=== PATIENT | male | born 1955 | race Caucasian/White ===

== ENCOUNTER 2020-09-26 14:40 | Inpatient (IN) | payer OTHER, MEDICAID ==
[~2020-09-26] VITALS: Ht 167.6 cm; Wt 72.6 kg
[2020-09-26] MEDS ORDERED: SODIUM CHLORIDE 0.9% 1000ML BAG (SEPSIS BOLUS) IV ONE (16:30)
[2020-09-26] MEDS ORDERED: VANCOMYCIN 1 G PREMIX 200 ML IV ONE (16:30)
[2020-09-26] MEDS ORDERED: PIPERACILLIN/TAZ 3.375G PREMIX 50 ML IV ONE (16:30)
[2020-09-26 16:38] LABS: HEMOGLOBIN. 12.9 g/dL (14.0-18.0); MEAN CORPUSCULAR VOLUME 88.5 fL (80.0-94.0); MEAN PLATELET VOLUME 7.8 fl (7.4-10.4); PLATELET 285 x1000/uL (130-400); RED BLOOD CELL COUNT 4.18 mill/uL (4.7-6.1); RED CELL DISTRIBUTION WIDTH 12.2 % (11.6-14.6)
[2020-09-26 16:40] LABS: CHLORIDE 95 mEq/L (98-107)
[2020-09-26 16:43] LABS: INR 1.1; PROTHROMBIN TIME 11.8 sec (9.6-11.0)
[2020-09-26 17:05] LABS: PLATELET ESTIMATE NORMAL
[2020-09-26 17:06] LABS: CLARITY URINE CLEAR (CLEAR); COLOR URINE DARK YELLOW (YELLOW); KETONES URINE TRACE (NEGATIVE); LEUKOCYTE ESTERASE URINE NEGATIVE (NEGATIVE); NITRITE URINE NEGATIVE (NEGATIVE); OCCULT BLOOD URINE NEGATIVE (NEGATIVE); PROTEIN URINE TRACE (NEGATIVE); SPECIFIC GRAVITY URINE 1.026 (1.005-1.030)
[2020-09-26] MEDS ORDERED: INSULIN REGULAR (HUMULIN R) 300UNITS/3ML VIAL SUBCUT ONE (21:30)
[2020-09-26 22:00] VITALS: BP 101/60
[2020-09-27] VITALS: BP 101/60
[2020-09-27] MEDS ORDERED: DEXTROSE 50% WATER 50ML SYRINGE IV PRN (00:15)
[2020-09-27] MEDS ORDERED: NALOXONE HCL 0.4MG/ML VIAL IV PRN (00:45)
[2020-09-27] MEDS ORDERED: *PATIENT'S OWN MEDICATION STORAGE XX SCH (02:15)
[2020-09-27] MEDS: PIPERACILLIN/TAZOBACTAM 3.375G in DEXT 5% WATER 50ML IV SCH ×3 (03:08→18:29)
[2020-09-27] MEDS ORDERED: METF-414 MT (03:39)
[2020-09-27 04:00] VITALS: BP 103/60
[2020-09-27] MEDS ORDERED: PIPERACILLIN/TAZOBACTAM 3.375 G/VIAL IV SCH (06:00)
[2020-09-27] MEDS: VANCOMYCIN 750 MG PREMIX 150 ML IV SCH ×2 (06:27→21:09)
[2020-09-27] MEDS: BLOOD SUGAR DIAGNOSTIC STRIP TEST SCH ×4 (06:28→21:00)
[2020-09-27] MEDS: HYDROCODONE/ACETAMINOPHEN 5/325MG TABLET PO PRN (06:29)
[2020-09-27 08:00] VITALS: BP 99/64
[2020-09-27] MEDS: ASPIRIN 81MG TABLET PO SCH (08:51)
[2020-09-27] MEDS: INSULIN LISPRO 100 UNITS/ML SUBCUT SCH ×4 (08:56→21:21)
[2020-09-27 10:50] LABS: HEMATOCRIT. 34.1 % (42.0-52.0); HEMOGLOBIN. 11.7 g/dL (14.0-18.0); MEAN CORPUSCULAR HEMOGLOBIN 30.6 pg (28.0-32.0); MEAN CORPUSCULAR VOLUME 89.1 fL (80.0-94.0); MEAN PLATELET VOLUME 8.2 fl (7.4-10.4); PLATELET 279 x1000/uL (130-400); RED BLOOD CELL COUNT 3.82 mill/uL (4.7-6.1); RED CELL DISTRIBUTION WIDTH 12.5 % (11.6-14.6)
[2020-09-27 11:31] LABS: CHLORIDE 102 mEq/L (98-107)
[2020-09-27 11:47] LABS: PLATELET ESTIMATE NORMAL
[2020-09-27 12:00] VITALS: BP 108/66
[2020-09-27] MEDS ORDERED: LIDOCAINE HCL 1% 20ML VIAL (Pyxis) INJ INFIL NR (12:17)
[2020-09-27] MEDS ORDERED: LIDOCAINE HCL 2% JELLY 5ML TOP NR (12:17)
[2020-09-27] MEDS: SILVER SULFADIAZINE 1% CREAM 50GM TOP SCH (15:00)
[2020-09-27] MEDS: SODIUM HYPOCHLORITE 0.125% 473ML SOLUTION TOP SCH (15:00)
[2020-09-27] MEDS ORDERED: INSULIN GLARGINE UD 100 UNITS/ML SYR SUBCUT NR (15:45)
[2020-09-27 16:00] VITALS: BP 107/63
[2020-09-27 20:32] VITALS: BP 104/62
[2020-09-27] MEDS: ATORVASTATIN CALCIUM 40MG TABLET PO SCH (21:08)
[2020-09-27] MEDS: INSULIN GLARGINE UD 100 UNITS/ML SYR SUBCUT SCH (21:20)
[2020-09-27] MEDS ORDERED: INSULIN GLARGINE UD 100 UNITS/ML SYR SUBCUT SCH (22:00)
[2020-09-28 02:00] VITALS: BP 139/75
[2020-09-28] MEDS: PIPERACILLIN/TAZOBACTAM 3.375G in DEXT 5% WATER 50ML IV SCH ×3 (03:56→20:15)
[2020-09-28 04:49] VITALS: BP 101/54
[2020-09-28 05:40] LABS: HEMATOCRIT. 33.6 % (42.0-52.0); HEMOGLOBIN. 11.4 g/dL (14.0-18.0); MEAN CORPUSCULAR VOLUME 88.4 fL (80.0-94.0); MEAN PLATELET VOLUME 7.8 fl (7.4-10.4); PLATELET 305 x1000/uL (130-400); RED CELL DISTRIBUTION WIDTH 12.5 % (11.6-14.6)
[2020-09-28 06:22] LABS: CHLORIDE 99 mEq/L (98-107)
[2020-09-28] MEDS: BLOOD SUGAR DIAGNOSTIC STRIP TEST SCH ×4 (06:31→21:39)
[2020-09-28] MEDS: INSULIN LISPRO 100 UNITS/ML SUBCUT SCH ×4 (07:50→21:00)
[2020-09-28 11:05] LABS: PLATELET ESTIMATE NORMAL
[2020-09-28] MEDS: VANCOMYCIN 750 MG PREMIX 150 ML IV SCH (12:22)
[2020-09-28] MEDS: ASPIRIN 81MG TABLET PO SCH (12:28)
[2020-09-28] MEDS: HYDROCODONE/ACETAMINOPHEN 5/325MG TABLET PO PRN (12:35)
[2020-09-28] MEDS: INSULIN GLARGINE UD 100 UNITS/ML SYR SUBCUT SCH ×2 (13:11→22:00)
[2020-09-28] MEDS: VANCOMYCIN 1250MG in DEXTROSE 5% WATER 250ML IV SCH (18:39)
[2020-09-28 20:00] VITALS: BP 99/59
[2020-09-28] MEDS: SODIUM HYPOCHLORITE 0.125% 473ML SOLUTION TOP SCH (20:21)
[2020-09-28] MEDS: SILVER SULFADIAZINE 1% CREAM 50GM TOP SCH (20:22)
[2020-09-28] MEDS: ATORVASTATIN CALCIUM 40MG TABLET PO SCH (21:39)
[2020-09-29] VITALS: BP 118/53
[2020-09-29] MEDS: VANCOMYCIN 1250MG in DEXTROSE 5% WATER 250ML IV SCH ×2 (00:16→12:27)
[2020-09-29] MEDS: PIPERACILLIN/TAZOBACTAM 3.375G in DEXT 5% WATER 50ML IV SCH ×3 (02:00→18:52)
[2020-09-29 04:00] VITALS: BP 117/70
[2020-09-29] MEDS: BLOOD SUGAR DIAGNOSTIC STRIP TEST SCH ×4 (06:35→21:00)
[2020-09-29 06:52] LABS: HEMATOCRIT. 32.7 % (42.0-52.0); HEMOGLOBIN. 11.5 g/dL (14.0-18.0); MEAN CORPUSCULAR HEMOGLOBIN 30.5 pg (28.0-32.0); MEAN CORPUSCULAR VOLUME 86.8 fL (80.0-94.0); MEAN PLATELET VOLUME 7.3 fl (7.4-10.4); PLATELET 323 x1000/uL (130-400); RED BLOOD CELL COUNT 3.77 mill/uL (4.7-6.1); RED CELL DISTRIBUTION WIDTH 12.2 % (11.6-14.6)
[2020-09-29 07:01] LABS: CHLORIDE 99 mEq/L (98-107)
[2020-09-29] MEDS: INSULIN LISPRO 100 UNITS/ML SUBCUT SCH ×4 (07:10→22:52)
[2020-09-29 08:00] VITALS: BP 119/71
[2020-09-29] MEDS: SODIUM HYPOCHLORITE 0.125% 473ML SOLUTION TOP SCH (09:00)
[2020-09-29] MEDS: SILVER SULFADIAZINE 1% CREAM 50GM TOP SCH (09:00)
[2020-09-29] MEDS: ASPIRIN 81MG TABLET PO SCH (09:56)
[2020-09-29] MEDS: INSULIN GLARGINE UD 100 UNITS/ML SYR SUBCUT SCH ×2 (10:03→22:52)
[2020-09-29 16:00] VITALS: BP 114/63
[2020-09-29 17:27] LABS: PLATELET ESTIMATE NORMAL
[2020-09-29 20:00] VITALS: BP 109/65
[2020-09-29] MEDS ORDERED: ACETAMINOPHEN 325MG TABLET PO PRN (20:30)
[2020-09-29] MEDS: ATORVASTATIN CALCIUM 40MG TABLET PO SCH (22:52)
[2020-09-30] VITALS: BP 111/65
[2020-09-30] MEDS: VANCOMYCIN 1250MG in DEXTROSE 5% WATER 250ML IV SCH (01:14)
[2020-09-30 04:00] VITALS: BP 113/70
[2020-09-30] MEDS: PIPERACILLIN/TAZOBACTAM 3.375G in DEXT 5% WATER 50ML IV SCH (05:05)
[2020-09-30 06:49] LABS: CHLORIDE 102 mEq/L (98-107)
[2020-09-30 06:52] LABS: BASOPHILS % 0.3 % (0.0-2.0); EOSINOPHILS % 1.4 % (0.0-5.0); HEMATOCRIT. 34.3 % (42.0-52.0); HEMOGLOBIN. 11.9 g/dL (14.0-18.0); LYMPHOCYTES % 11.4 % (20.0-50.0); MEAN CORPUSCULAR HEMOGLOBIN 30.4 pg (28.0-32.0); MEAN CORPUSCULAR VOLUME 87.3 fL (80.0-94.0); MEAN PLATELET VOLUME 7.2 fl (7.4-10.4); MONOCYTES % 13.8 % (2.0-8.0); NEUTROPHILS % 73.1 % (40.0-76.0); PLATELET 382 x1000/uL (130-400); RED BLOOD CELL COUNT 3.93 mill/uL (4.7-6.1); RED CELL DISTRIBUTION WIDTH 12.1 % (11.6-14.6)
[2020-09-30] MEDS: BLOOD SUGAR DIAGNOSTIC STRIP TEST SCH ×2 (07:14→12:57)
[2020-09-30] MEDS: INSULIN LISPRO 100 UNITS/ML SUBCUT SCH ×2 (07:50→13:56)
[2020-09-30 08:00] VITALS: BP 115/63
[2020-09-30] MEDS: SILVER SULFADIAZINE 1% CREAM 50GM TOP SCH (09:00)
[2020-09-30] MEDS: SODIUM HYPOCHLORITE 0.125% 473ML SOLUTION TOP SCH (09:00)
[2020-09-30] MEDS: ASPIRIN 81MG TABLET PO SCH (10:19)
[2020-09-30] MEDS: INSULIN GLARGINE UD 100 UNITS/ML SYR SUBCUT SCH (10:21)
[2020-09-30] MEDS ORDERED: HYDR-4001 MT (11:02)
[2020-09-30 12:00] VITALS: BP 116/66
[2020-09-30] MEDS ORDERED: PIPERACILLIN/TAZOBACTAM 3.375G in DEXT 5% WATER 50ML IV SCH (14:00)
== END 2020-09-30 16:23 | disposition home or self-care (01) | DRG 854 ==
LOC: ER 14:40 → ENRESERV 22:35 → 6EST 23:16
PROVIDERS: ADMIT Internal Medicine; ATTEND Internal Medicine
PROC: 0SBP0ZZ Excision of Right Toe Phalangeal Joint, Open Approach (ICD-10-PCS; principal; 2020-09-27)
PROC: 0SBP0ZZ Excision of Right Toe Phalangeal Joint, Open Approach (ICD-10-PCS; 2020-09-27)
DX: A41.9 Sepsis, unspecified organism (principal); L02.611 Cutaneous abscess of right foot; E44.1 Mild protein-calorie malnutrition; L03.115 Cellulitis of right lower limb; E87.1 Hypo-osmolality and hyponatremia; E11.65 Type 2 diabetes mellitus with hyperglycemia; E11.51 Type 2 diabetes mellitus with diabetic peripheral angiopathy without gangrene; R26.89 Other abnormalities of gait and mobility; E11.621 Type 2 diabetes mellitus with foot ulcer; B95.1 Streptococcus, group B, as the cause of diseases classified elsewhere; L97.519 Non-pressure chronic ulcer of other part of right foot with unspecified severity; D64.9 Anemia, unspecified; E87.8 Other disorders of electrolyte and fluid balance, not elsewhere classified; Z68.25 Body mass index [BMI] 25.0-25.9, adult; Z79.1 Long term (current) use of non-steroidal anti-inflammatories (NSAID); Z79.899 Other long term (current) drug therapy
CPT/HCPCS: 36415; 73630; 73718; 80048; 80053; 80202; 81003; 82962; 83036; 83605; 84145; 85025; 86140; 87070; 87075; 87077; 87186; 93005; 93923; 97162; 99285; J1815; J2543; J3370; J3490; J7030; J7040; J7060